=== PATIENT | male | born 1970 | race Caucasian/White ===

== ENCOUNTER → 2017-04-17 | Outpatient (CLI) | payer BC ==
--- NOTE | 2017-04-17 14:26 | KCIC ---
HIP LEFT 2 VIEW History: Persistent left hip pain with certain movements for a few months Comparison: None. Findings: 2 views of left hip are submitted. Left femoral head morphology is preserved. No acute fracture or dislocation is identified. Left hip joint space is adequate. Impression: 1. No significant osseous abnormality is identified by radiograph. Electronically signed by: Morales Chan MD (04/17/2017 2:23 PM) [id number]
== END | disposition home or self-care (01) ==
LOC: KCIC 13:26
PROVIDERS: ATTEND Physical Medicine & Rehabilitation
DX: M25.552 Pain in left hip (principal)
CPT/HCPCS: 73502

== ENCOUNTER → 2018-01-08 | Outpatient (CLI) | payer OTHER | END | disposition home or self-care (01) | LOC: KCIC 13:06 | DX: M41.86 Other forms of scoliosis, lumbar region (principal); G89.29 Other chronic pain | CPT/HCPCS: 72110 ==

== ENCOUNTER 2018-09-20 18:52 | Emergency (ER) | payer OTHER ==
[~2018-09-20] VITALS: Ht 172.7 cm; Wt 59.0 kg
[2018-09-20 20:51] VITALS: BP 133/70
--- NOTE | 2018-09-20 21:16 | PHYS DOC ---
Past Medical History Past Medical History: Arthritis, Fibromyalgia, Other Additional Past Medical Histor: OSTEOARTHRITIS,NEUROPATHY,INFLAMMATORY ARTHRITIS Additional Past Surgical Histo: RIGHT SHOULDER Alcohol Use: None Drug Use: None Adult General Chief Complaint Chief Complaint: HIP PAIN HPI HPI Patient is a 48 year old male who presents with left hip pain post fall several hours ago. Increased pain with movement. Better with holding still. No loss of bowel or bladder control. No other injury. No head injury. No numbness, tingling, paresthesias. Patient often walks with a cane due to his other underlying medical condition, and has been having to do that since the fall. Patient is on long-term narcotic pain medicine for his chronic pain issues and has had no relief with that. Pain is moderate to severe in intensity.[] Review of Systems Review of Systems Constitutional: Denies fever or chills [] Eyes: Denies change in visual acuity, redness, or eye pain [] HENT: Denies nasal congestion or sore throat [] Respiratory: Denies cough or shortness of breath [] Cardiovascular: No chest pain or palpitations[] GI: Denies abdominal pain, nausea, vomiting, bloody stools or diarrhea [] : Denies dysuria or hematuria [] Musculoskeletal: Denies back pain, see history of present illness[] Integument: Denies rash or skin lesions [] Neurologic: Denies headache, focal weakness or sensory changes [] Endocrine: Denies polyuria or polydipsia [] All other systems were reviewed and found to be within normal limits, except as documented in this note. Current Medications Current Medications Current Medications Medications (Trade) Dose Ordered Sig/[facility] Start Time Stop Time Status Last Admin Dose Admin Ketorolac Tromethamine (Toradol 15mg Vial) 15 mg 1X ONCE 09/20/18 21:45 09/20/18 21:46 DC Allergies Allergies Allergies Coded Allergies Type Severity Reaction Last Updated Verified celecoxib Allergy Severe HIVES 09/20/18 Yes pregabalin Allergy Severe HIVES 09/20/18 Yes Physical Exam Physical Exam Constitutional: Well developed, well nourished, mild discomfort, non-toxic appearance. [] HENT: Normocephalic, atraumatic, bilateral external ears normal, oropharynx moist, no oral exudates, nose normal. [] Eyes: PERRLA, EOMI, conjunctiva normal, no discharge. [] Neck: Normal range of motion, no tenderness, supple, no stridor. [] Cardiovascular:Heart rate regular rhythm, no murmur [] Lungs & Thorax: Bilateral breath sounds clear to auscultation [] Abdomen: Bowel sounds normal, soft, no tenderness, no masses, no pulsatile masses. [] Skin: Warm, dry, no erythema, no rash. [] Back: No tenderness, no CVA tenderness. [] Extremities: No tenderness, no cyanosis, no clubbing, ROM intact, no edema. No left hip rotation, patient has an antalgic gait secondary to pain. On palpation of the area where he has discomfort, does sciatic region, patient has no specific tenderness to palpation. Patient is distal neurovascularly intact. [] Neurologic: Alert and oriented X 3, normal motor function, normal sensory function, no focal deficits noted. [] Psychologic: Affect normal, judgement normal, mood normal. [] Current Patient Data Vital Signs Vital Signs Date Time Temp Pulse Resp B/P (MAP) Pulse Ox O2 Delivery O2 Flow Rate FiO2 09/20/18 20:51 97.8 100 16 133/70 (91) 100 Room Air 97.8 EKG EKG [] Radiology/Procedures Radiology/Procedures X-ray of the left hip and pelvis shows no evidence of a fracture or dislocation. [] Course & Med Decision Making Course & Med Decision Making Pertinent Labs and Imaging studies reviewed. (See chart for details) Medical decision making: There is no evidence of a fracture or dislocation. No evidence of neuro or vascular compromise. We'll attempt to manage this as an outpatient, in a more complex patient due to his long-standing pain issues.[] Dragon Disclaimer Dragon Disclaimer This electronic medical record was generated, in whole or in part, using a voice recognition dictation system. Departure Departure Impression: Primary Impression: Left hip pain Disposition: 01 HOME, SELF-CARE Condition: IMPROVED Referrals: KIRK KENYON MD (PCP) Follow-up in 2 days Patient Instructions: Hip Injury, Hip Pain Additional Instructions: Follow-up with your regular doctor in 2 days. Apply warm compresses to the painful area for 15 minutes at a time, at least 4 times a day. Return to the ER if worsening pain, or any other concerns. Scripts Orphenadrine Citrate (ORPHENADRINE CITRATE) 100 Mg Tablet.er 100 MG PO BID, #20 TAB.SR Prov: CHUY KEN DO 09/20/18 Meloxicam (MELOXICAM) 7.5 Mg Tablet 7.5 MG PO DAILY, #20 TAB Prov: CHUY KEN DO 09/20/18 CHUY KEN DO Sep 20, 2018 21:16
[2018-09-20] MEDS ORDERED: KETOROLAC 15 MG/ML VIAL. IM ONE (21:45)
[2018-09-20] MEDS ORDERED: ORPH100T PO (21:59)
[2018-09-20] MEDS ORDERED: MELO7.5T29 PO (21:59)
--- NOTE | 2018-09-21 07:41 | RAD ---
Indication: Fall with left hip pain TECHNIQUE: 3 views of the left hip COMPARISON: None FINDINGS/ impression: Bilateral hip joints are symmetric. No acute fracture or dislocation. Electronically signed by: Misael Betancur DO (09/21/2018 7:37 AM) [facility] [place]
== END 2018-09-20 22:07 | disposition home or self-care (01) ==
LOC: ER 18:52
DX: M25.552 Pain in left hip (principal); M19.90 Unspecified osteoarthritis, unspecified site; G89.29 Other chronic pain; Z79.891 Long term (current) use of opiate analgesic; Z88.6 Allergy status to analgesic agent; Z88.8 Allergy status to other drugs, medicaments and biological substances; W00.0XXA Fall on same level due to ice and snow, initial encounter; Y93.01 Activity, walking, marching and hiking; Y92.89 Other specified places as the place of occurrence of the external cause; Y99.8 Other external cause status
CPT/HCPCS: 73502; 96372; 99283; J1885